=== PATIENT | female | born 1990 | race Two or more races ===

== ENCOUNTER 2022-04-03 18:23 | Emergency (ER) | payer MEDICAID, OTHER ==
[~2022-04-03] VITALS: Ht 175.3 cm; Wt 59.0 kg
[~2022-04-03 18:23] MED LIST: ARIP2TAB3 PO; DEXT5TAB15 PO; FLUO10CA26 PO; TRAZ-182 PO
--- NOTE | 2022-04-03 18:35 | NUR ---
RECEIVED PT 31 YRS FEMALE came by [facility]doulaye and ACCOMPANY BY HAILEY BROKEN OTHER PEOPLE WONDOI OPEN AND ACTIVE BLEEDING ON RT HAND dressing removed dressing done still bleeding socked with with bathdine solution AND NS
--- NOTE | 2022-04-03 19:22 | NUR ---
RECEIVED REPORT FROM MATHEW MANRIQUE
--- NOTE | 2022-04-03 19:23 | NUR ---
PT IS ALERT AND ORIENTED, ACCOMPANIED BY [employer]. PT IS UNDER [employer] CUSTODY. LAC NOTED ON R HAND. WOUND IS OPEN TO AIR, ACTIVELY BLEEDING. TECH AT BEDSIDE FOR WOUND CARE. UNK DATE OF LAST TDAP. CONNECTED TO MONITOR. WILL CONTINUE TO MONITOR.
--- NOTE | 2022-04-03 19:25 | NUR ---
HAND OFF RUSH MANRIQUE
[2022-04-03] MEDS ORDERED: LIDOCAINE HCL/PF 1% 30 ML SDV ONE (19:27)
[2022-04-03] MEDS ORDERED: TDAP [DIPH/PERTUSSIS/TET] 0.5 ML VIAL IM ONE ×2 (19:44→20:00)
[2022-04-03] MEDS ORDERED: LIDOCAINE HCL/PF 1% 30 ML VIAL TP ONE (20:00)
--- NOTE | 2022-04-03 21:34 | NUR ---
WOUND CARE PROVIDED. WRAPPED WITH KERLIX.
--- NOTE | 2022-04-03 21:35 | NUR ---
Patient discharged to home in stable condition. Written and verbal after care instructions given. Patient verbalizes understanding of instruction. Pt ambulatory with a steady gait
[2022-04-03 21:36] VITALS: BP 107/70
== END 2022-04-03 21:36 | disposition home or self-care (01) ==
LOC: ER 18:30
DX: S61.411A Laceration without foreign body of right hand, initial encounter (principal); F32.A Depression, unspecified; F17.200 Nicotine dependence, unspecified, uncomplicated; Z79.899 Other long term (current) drug therapy; W25.XXXA Contact with sharp glass, initial encounter; Y93.89 Activity, other specified; Y92.89 Other specified places as the place of occurrence of the external cause; Y99.8 Other external cause status
CPT/HCPCS: 99283; 12002; 90471; 90715; 73130; J3490 ×2; A6403

== ENCOUNTER 2022-04-13 19:25 | Emergency (ER) | payer MEDICAID ==
[~2022-04-13] VITALS: Ht 175.3 cm; Wt 59.0 kg
--- NOTE | 2022-04-13 20:10 | NUR ---
NIA MCCALL AT PT'S BEDSIDE FOR WOUND CARE
[2022-04-13 20:15] VITALS: BP 125/74
--- NOTE | 2022-04-13 20:43 | NUR ---
Patient discharged to home in stable condition. Written and verbal after care instructions given. Patient verbalizes understanding of instruction. Pt ambulatory with a steady gait
== END 2022-04-13 20:43 | disposition home or self-care (01) ==
LOC: ER 19:28
DX: Z48.02 Encounter for removal of sutures (principal); S61.511D Laceration without foreign body of right wrist, subsequent encounter; F32.A Depression, unspecified; F17.200 Nicotine dependence, unspecified, uncomplicated; Z79.899 Other long term (current) drug therapy; X58.XXXD Exposure to other specified factors, subsequent encounter

== ENCOUNTER 2024-05-04 12:29 | Emergency (ER) | payer MEDICAID ==
[~2024-05-04] VITALS: Ht 170.2 cm; Wt 63.5 kg
[2024-05-04 13:14] VITALS: BP 128/76; TEMP 98.1; O2SAT 98
== END 2024-05-04 13:15 | disposition home or self-care (01) ==
LOC: ER 12:31
DX: S09.8XXA Other specified injuries of head, initial encounter (principal); F17.200 Nicotine dependence, unspecified, uncomplicated; F32.A Depression, unspecified; Z79.899 Other long term (current) drug therapy; W13.4XXA Fall from, out of or through window, initial encounter; Y93.89 Activity, other specified; Y92.89 Other specified places as the place of occurrence of the external cause; Y99.8 Other external cause status